=== PATIENT | female | born 1955 | race Caucasian/White ===

== ENCOUNTER 2019-03-01 05:54 | Day surgery (SDC) | payer OTHER ==
[2019-03-01] MEDS ORDERED: CEFAZOLIN 1 GM INJ (06:50)
[2019-03-01] MEDS ORDERED: EPINEPHrine 1 MG INJ (06:51)
[2019-03-01] MEDS ORDERED: SOD CHLORIDE 0.9% 1,000 ML IV (07:00)
[2019-03-01] MEDS ORDERED: ONDANSETRON 4 MG INJ IV (07:00)
[2019-03-01] MEDS ORDERED: FENTAnyl 50 MCG/ML VIAL IV ×3 (07:00)
[2019-03-01] MEDS ORDERED: FENTAnyl 50 MCG/ML VIAL (07:04)
[2019-03-01] MEDS ORDERED: PROPOFOL 20 ML (07:04)
[2019-03-01] MEDS: MOXIFLOXACIN 0.5% 3 ML OPH OPER (07:07)
[2019-03-01] MEDS: DICLOFENAC 0.1% 2.5 ML OPH OPER (07:08)
[2019-03-01] MEDS: TROPICAMIDE 1% 15 ML OPH OPER (07:09)
[2019-03-01] MEDS: CYCLOPENTOLATE/PHENYLEPH 2 ML OPH OPER (07:09)
[2019-03-01] MEDS: CARBACHOL 0.01% 1.5 ML OPH INJ (07:55)
[2019-03-01] MEDS: NA HYALURONATE/CHONDROITIN 0.5 ML SYG RIGHT EYE (07:56)
[2019-03-01] MEDS: TETRACAINE 0.5% 4 ML OPH (07:56)
[2019-03-01] MEDS: LIDOCAINE 4% (MPF) 5 ML INJ (07:56)
[2019-03-01] MEDS: GENTAMICIN 80 MG INJ (07:57)
[2019-03-01] MEDS: DEXAMETHASONE 4 MG/ML 1 ML INJ (07:58)
[2019-03-01] MEDS ORDERED: NA HYALURONATE/CHONDROITIN 0.5 ML SYG (08:17)
== END 2019-03-01 09:10 | disposition home or self-care (01) ==
LOC: SDS 05:54
DX: H25.11 Age-related nuclear cataract, right eye (principal); E03.9 Hypothyroidism, unspecified; I10 Essential (primary) hypertension
CPT/HCPCS: 66984